=== PATIENT | male | born 1985 | race Caucasian/White ===

== ENCOUNTER 2019-07-07 20:03 | Emergency (ER) | payer OTHER, SELFPAY ==
[2019-07-07] VITALS (26 sets, daily range): BP systolic 109–154; BP diastolic 69–95; PULSE 80–118; RESP 8–23; TEMP 36.6–36.9; O2SAT 94–100
--- NOTE | 2019-07-07 20:19 | W.ED.GENAD ---
Discharge Plan Disposition Patient Disposition: HOME Condition: Fair Discharge Details Chief Complaint: Dizzy/Sync Clinical Impression: Heart palpitations, Dehydration, Creatinine elevation Primary Care Provider: Justine,Local ED Provider: Kyara Allred Home Meds and New Rx's Prescriptions: Continued olopatadine [Patanol] 5 ML drops 1 drp OD BID Qty: 1 RF: 0 Discharge Instructions Instructions: Palpitations (ED), Dehydration (ED) Additional Instructions: Please encourage water intake. Please contact primary care tomorrow to discuss recommended Holter monitor. Please continue to move forward with other testing as was previously advised by primary care. Order has been placed for outpatient Holter to evaluate fly tomorrow. Your creatinine was elevated here, you did appear dehydrated which may have contributed to your symptoms. Please encourage water intake. You will need to have your creatinine reassessed within the next 48 hours. If you develop recurrence of your symptoms, chest pain or shortness of breath, no current palpitations or other new/worsening symptoms please seek care urgently once again. Stand Alone Forms: Work Release Discharge Data Discharge Date/Time-TO BE ENTERED AT DEPARTURE: 07/07/19 23:50 Medical Decision Making Patient is a pleasant 34-year-old male presenting today with chief complaint of palpitations. He has a history of hemochromatosis for which she reports he undergoes therapeutic phlebotomy every 3 months. He reports he was seen at the [place] 2 weeks ago with similar symptoms that he is exhibiting today at which time he was advised to hold off on his treatment which would be scheduled for now. He reports that 2 weeks ago as well as today, he had a sudden onset of palpitations. States that he was sitting in a chair watching TV when this began. He states that he stood and had an episode of lightheadedness. States that the symptoms have waxed and waned but have been fairly consistent in the car while coming here. Patient did need assistance out of the car. Differentials include ACS he denies any shortness of breath. No chest pain. [place] that his heart rate was very rapid and he felt lightheaded with concern for syncopal episode. States that prior to 2 weeks ago he had never had symptoms like this. Denies any cough. No fevers. No nausea vomiting. No recent travel. Denies any leg pain or swelling. He denies any increased stress. He does report that his hands are tingling. Patient is a nurse and works with dialysis locally. EKG was reviewed by Dr. Carmona. Patient is in sinus tachycardia with a rate of 101. Patient is questioning potential mild upslope of the QRS raising the possibility WPW although QRS is normal duration as is the [place] which makes this less likely. On exam, patient is tachycardic with heart rate of 101. He slightly hypertensive at 154/95. He appears very anxious. Lungs are clear, normal cardiac exam with no murmurs, rubs or gallops noted. No lower extremity edema, no posterior calf pain. Abdomen is soft and nontender. Unclear at this time if this is a cardiac source of his symptoms versus anxiety as he does appear very anxious at this point. Patient admits to intermittent severe episodes of presyncope, palpitations and tachycardia. Unclear how fast his heart rate was. Patient was feeling this symptom when I went to assist the patient out of the car. However, I did palpate his radial pulse and found to be around 100 even when in the car. This patient did have worse symptoms while at home, he could have been a night more pronounced tachyarrhythmia. He is currently in a sinus rhythm. No history of arrhythmia. Patient not had any shortness of breath, pleuritic discomfort. He is not hypoxic. I do not have any evidence to support diagnosis of pulmonary embolism at this time. Patient does have family history of ACS but again, find this unlikely given that this was a sudden onset while sedentary the patient is otherwise active without any symptoms. Again, this is most concerning for an arrhythmia versus anxiety related issues. Chest x-ray is reviewed by radiologist: FINDINGS: Lungs: Low lung volumes. Bibasilar atelectasis. No focal consolidation. Pleural space: Unremarkable. No pleural effusion. No pneumothorax. Heart/Mediastinum: Unremarkable. No cardiomegaly. Bones/joints: Unremarkable for patient's age. IMPRESSION: No acute cardiopulmonary findings. Labs reviewed, no leukocytosis. Normal coagulation studies. Potassium slightly low at 3.3. Patient does have a slight gap of 12.3 with an elevated creatinine 1.45. I do not have any previous for evaluation I am questioning patient may be dehydrated. He is receiving a liter of fluid at this time. Total bili is slightly elevated 1.4. Initial troponin is less than 0.05. TSH within normal limits. Plan to obtain repeat troponin and continue to monitor patient. He is feeling improved at this point. Repeat troponin remains within normal limits. Repeat EKG was reviewed by Dr. Caba. Patient's normal sinus rhythm with a rate of 77. No ischemic changes are noted. He advises no evidence of delta wave. Patient is received 2 L of fluid thus far. He is resting comfortably and reports that he is completely asymptomatic and is feeling well. Ready for discharge at this time. I am concerned the patient may have had an arrhythmia based on his symptoms and I would like for him to be on a Holter monitor. He will contact his primary care to ensure coverage as [facility] but I plan to place an order for an outpatient Holter monitor. His primary care is already ordered outpatient cardiac testing otherwise after his initial event to include echo and likely stress test. I have also advised that he needs to have his BMP rechecked in a few days to evaluate his kidney function after being hydrated. I did encourage water intake. He was given strict return precautions. All his questions and concerns were addressed and he is in agreement this plan. HPI General Mode of arrival: wheelchair. Date/Time Provider Initiated Documentation: 07/07/19 20:13. Limitations to Documentation: no limitations. Information obtained by: patient, family and RN notes reviewed. History of Present Illness 34 year old M presents to the emergency department with the chief complaint of palpitations, lightheadedness, presyncope, described as severe and similar to prior episodes, Patient started experiencing this minute(s) and it has been constant. No relieving factors improve symptom(s), No exacerbating factors reported . Patient notes denies chest pain, cough, diaphoresis, fever/chills, headaches, nausea/vomiting, rash, shortness of breath and syncope (presyncopal episodes, no LOC). Patient did receive the following treatments prior to arrival, none Related Data Home Medications Medication Instructions Recorded Confirmed olopatadine [Patanol] 1 drp OD BID #1 btl 06/22/17 Previous Rx's Medication Instructions Recorded olopatadine [Patanol] 1 drp OD BID #1 btl 06/22/17 Allergies Allergy/AdvReac Type Severity Reaction Status Date / Time No Known Allergies Allergy Unverified 06/22/17 06:44 General Stated Complaint: Dizzy/Sync SIL: 2 Review of Systems Constitutional Constitutional: Reports as per HPI, Denies chills, Denies fever(s), Denies headache(s), Denies lethargy and Denies poor appetite Eyes Eyes: Denies change in vision ENT Ears, Nose, Mouth, and Throat: Denies dizziness and Denies headache(s) Cardiovascular Cardiovascular: Reports as per HPI, Denies dyspnea and Denies dyspnea on exertion Respiratory Respiratory: Reports as per HPI, Denies chest congestion, Denies cough, Denies pain on inspiration, Denies pain with cough, Denies dyspnea, Denies dyspnea on exertion and Denies wheezing Gastrointestinal Gastrointestinal: Reports as per HPI, Denies abdominal pain, Denies diarrhea, Denies nausea and Denies vomiting Genitourinary Genitourinary: Denies system reviewed and no additional complaints, except as documented (denies change in urinary habits) Musculoskeletal Musculoskeletal: Reports as per HPI and Denies back pain Integumentary/Breasts Skin/Breast: Reports as per HPI and Denies rash Neurologic Neurologic: Reports as per HPI, Denies dizziness and Denies headache(s) Allergic/Immunologic Allergic/Immunologic: Denies wheezing PFSH Social History Do you feel safe in your relationship?: Yes Exam Const General: cooperative, healthy appearing, no acute distress, well developed and anxious (patient appears very anxious) Nutritional Appearance: average body habitus and well nourished Orientation: alert, awake and oriented x3 HENMT Head: normal to inspection Ears: hearing grossly normal bilaterally Mouth: moist mucous membranes Chest Chest: normal inspection of the chest, normal palpation of entire chest wall and no crepitus Resp Effort & Inspection: normal respiratory effort, able to speak in complete sentences and no respiratory distress Auscultation: clear to auscultation bilaterally, no rales, no rhonchi and no wheezes Cardio Jugular venous pressure: no JVD Palpation: normal PMI Rate: tachycardic (101 at the time of evaluation) Rhythm: regular rhythm Heart Sounds: S1 normal and S2 normal GI Inspection: normal to inspection, no edema and non-distended Palpation: soft, no hepatosplenomegaly, not firm, no guarding, not rigid and nontender Auscultation: normal bowel sounds Back/Spine/Pelvis Back: no CVA tenderness Thoracic/Lumbar Spine: thoracic and lumbar spine normal to inspection Skin General skin exam: no rashes or lesions noted Trauma: no lacerations or abrasions Neuro General: patient alert, patient awake and patient oriented x3 Cognition: normal cognition Speech: speech normal Gait: normal gait Extrem General: normal to inspection, capillary refill normal, no pedal edema, no calf tenderness and normal gait Psych Appearance: grossly normal and well kempt Mental Status: mental status grossly normal Speech and Movement: speech and movement normal Course Vital Signs Vital signs: Vital Signs Pulse 101 H 07/07/19 20:08 Respiratory Rate 16 07/07/19 20:08 Blood Pressure 154/95 H 07/07/19 20:08 Pulse Oximetry 100 07/07/19 20:08 Pulse 101 H 07/07/19 20:08 Respiratory Rate 16 07/07/19 20:08 Blood Pressure 154/95 H 07/07/19 20:08 Blood Pressure Position Supine 07/07/19 20:08 Pulse Oximetry 100 07/07/19 20:08 Oxygen Delivery Method Room Air 07/07/19 20:08 Oxygen Flow Rate 0 07/07/19 20:08 Pain Level 0 07/07/19 20:08
[2019-07-07 20:23] LABS: Abs Immature Grans 0.03 k/cumm (0.0-0.09); Absolute Basophil Count 0.03 k/cumm (0.0-0.2); Absolute Eosinophil Count 0.12 k/cumm (0.0-0.7); Absolute Lymphocyte Count 2.99 k/cumm (1.2-3.4); Absolute Monocyte Count 0.83 k/cumm (0.11-0.7); Absolute Neutrophil Count 6.15 k/cumm (1.2-6.7); Basophils % 0.3; Eosinophils % 1.2; HCT 45.1 % (40.0-50.0); HGB 16.6 g/dL (13.5-17.5); Immature Grans % 0.3 %; Lymphocytes % 29.5; Mean Corp. HGB Concentration 36.8 g/dL (32.0-36.0); Mean Corpuscular Hemoglobin 32.9 pg (27.0-33.0); Mean Corpuscular Volume 89.5 fL (80-95); Mean Platelet Volume 10.9 fL (8.0-11.0); Monocytes % 8.2; Neutrophils % 60.5; Platelet Count 296 x1000/uL (130-400); RBC 5.04 m/cumm (4.50-6.00); RBC Distribution Width 13.5 % (11.8-14.1); White Blood Cell Count 10.15 k/cumm (4.4-10.8)
--- NOTE | 2019-07-07 20:30 | DI.RAD_ITS ---
EXAM: XR CHEST 2V PA LATERAL CLINICAL HISTORY: palpitations TECHNIQUE: 2D digital imaging was performed. COMPARISON: No exams were available for comparison FINDINGS: MEDIASTINUM: Normal. HEART: Normal. PULMONARY VASCULATURE: Normal. LUNGS: No focal consolidating infiltrate. PLEURAL SPACE: No pleural effusion or pneumothorax. BONE:Normal. OTHER FINDINGS:Low lung volumes. IMPRESSION: No acute pulmonary findings. DATA REPOSITORY: RADIATION DOSE DELIVERED:
[2019-07-07] MEDS: Normal Saline 1,000 ML 150 ML IV (20:31)
--- NOTE | 2019-07-07 20:37 | DI.VRAD_ITS ---
PROCEDURE INFORMATION: Exam: XR Chest, 2 Views Exam date and time: 07/07/2019 8:29 PM Age: 34 years old Clinical indication: Other: Palpitations TECHNIQUE: Imaging protocol: XR of the chest Views: 2 views. COMPARISON: No relevant prior studies available. FINDINGS: Lungs: Low lung volumes. Bibasilar atelectasis. No focal consolidation. Pleural space: Unremarkable. No pleural effusion. No pneumothorax. Heart/Mediastinum: Unremarkable. No cardiomegaly. Bones/joints: Unremarkable for patient's age. IMPRESSION: No acute cardiopulmonary findings. Dictated and Authenticated by: Cassy Hammer MD. Ordering:ALEXIS Sparrow MD
[2019-07-07 20:39] LABS: PTT Activated 23.5 sec (21.0-31.4); Prothrombin Time 10.4 sec (9.3-11.0)
[2019-07-07 20:49] LABS: ALT 51 U/L (16-63); AST 26 U/L (15-37); Albumin 4.7 g/dL (3.4-5.0); Alkaline Phosphatase 63 U/L (46-116); Anion Gap 12.3 mmol/L (3-11); BUN 15 mg/dL (7-18); Bilirubin, Total 1.4 mg/dL (0.2-1.0); CO2 26.7 mmol/L (21.0-32.0); CREATININE 1.45 mg/dL (0.70-1.30); Calcium 9.1 mg/dL (8.5-10.1); Chloride 103 mmol/L (98-107); Estimated GFR 56.05 (mL/min/1.73m2); Glucose 126 mg/dL (74-106); Magnesium 1.7 mg/dL (1.8-2.4); Potassium 3.3 mmol/L (3.5-5.1); Sodium 142 mmol/L (136-145); TSH 3.13 uIU/mL (0.36-3.74); Total Protein 7.7 g/dL (6.4-8.2)
[2019-07-07 20:50] LABS: Troponin I < 0.05 ng/Ml (<0.06)
[2019-07-07] MEDS: Normal Saline 1,000 ML 1000 ML IV (22:02)
[2019-07-07 23:28] LABS: Troponin I < 0.05 ng/Ml (<0.06)
== END 2019-07-07 23:50 | disposition home or self-care (01) ==
PROVIDERS: Emergency Provider Physician Assistant
DX: R00.2 Palpitations (principal); E86.0 Dehydration; R94.4 Abnormal results of kidney function studies; E83.119 Hemochromatosis, unspecified; E87.6 Hypokalemia
CPT/HCPCS: 36415; 80053; 93005; 96360; 96361; 99285; 71046; 83735; 84443; 84484; 85025; 85610; 85730; 93010

== ENCOUNTER 2019-07-08 20:10 | Emergency (ER) | payer OTHER, SELFPAY ==
[2019-07-08] VITALS (12 sets, daily range): BP systolic 131–139; BP diastolic 81–87; PULSE 87–103; RESP 8–27; TEMP 37.4; O2SAT 96–99
--- NOTE | 2019-07-08 20:20 | ED.GENADUL_ITS ---
Discharge Plan Disposition Patient Disposition: HOME Condition: Fair Discharge Details Chief Complaint: Palpitatns Clinical Impression: Heart palpitations Primary Care Provider: Fausto Freeman ED Provider: Kyara Allred Discharge Instructions Instructions: Palpitations (ED) Additional Instructions: Continue to encourage water intake. Continue to rest as you have been at home. Please call primary care tomorrow morning regarding Holter monitor. Please call me if you are having difficulty getting appointment. If you have return of symptoms, chest pain, shortness of breath, syncopal episode or other new/worsening symptoms please seek care urgently once again. Discharge Data Discharge Date/Time-TO BE ENTERED AT DEPARTURE: 07/08/19 21:25 Medical Decision Making Patient is a pleasant 34-year-old male, was seen by myself yesterday, presenting today with chief complaint of persistent palpitations. He was seen by myself yesterday at the time of his discharge, his symptoms had resolved. He states that throughout the entire day today, he has had fluttering in his chest but then developed true palpitations while at [place] this evening. He reports sitting at home, watching TV, when he began having these symptoms. Same type of onset was described last night. Reports that he had been intermittently checking his pulse with a home oximeter machine throughout the day. Reports that throughout the course the day when he was experiencing a fluttering his heart rate was up in the 80s or low 90s. However, when the palpitations began he was able to watch his heart rate steadily rise to the 190s. Reports that symptoms did improve slightly on his way here. He denies any chest pain. No shortness of breath. He did feel lightheaded particularly when he stood to a standing po sition. On exam, patient is resting comfortably. He has normal cardiac exam, lungs are clear. He does appear very anxious. Initial vital signs significant for heart rate of 92. Otherwise within normal limits. EKG was reviewed by Dr. Caba. Patient's normal sinus rhythm with a rate of 93. No acute ischemic changes noted, normal VT, QT. Labs reviewed. No leukocytosis. D-dimer is within normal limits. Creatinine is improved from yesterday down to 1.11 from 1.45. Troponin remains less than 0.05. As he had chest x-ray yesterday as well as time troponins, do not feel that a repeat is necessary at this point nor is further imaging. Patient has had symptoms frequently throughout the course the day. It still remains unclear at this time as this is associated with arrhythmia versus anxiety. Patient does seem to have symptoms correlating with both of these etiologies. However, the patient does report that his heart rate was near 200 prior to arrival, and primarily concerned for arrhythmia and feel that Holter is appropriate. He was having difficulty reaching his primary care and I have asked her care technician to help assist him tomorrow with this. [place] has advised that there would like for him to have his Holter monitor through their [place] office. I have asked her care technician to ensure that this is completed tomorrow either through the [place] or through our facility. He was given strict return precautions. We did discuss plus/minus of admission and he would prefer to be discharged at this time. He does live locally and is able to return quickly if he develops any worsening symptoms. All his questions and concerns were addressed and he is agreement with this plan. HPI General Mode of arrival: ambulatory . Date/Time Provider Initiated Documentation: 07/08/19 20:19 . Limitations to Documentation: no limitations . Information obtained by: patient, family () and RN notes reviewed . History of Present Illness 34 year old M presents to the emergency department with the chief complaint of palpitations, described as moderate and similar to prior episodes, Quality is described as other (denies any pain, had fluttering in his chest throughout the day, palpitations prior to arrival), and is localized to the chest. Patient reports no radiation. Patient started experiencing this day(s) and it has been constant. No relieving factors improve symptom(s), No exacerbating factors reported . Patient notes no other symptoms.. Patient did receive the following treatments prior to arrival, none Related Data Allergies Allergy/AdvReac Type Severity Reaction Status Date / Time No Known Allergies Allergy Unverified 07/08/19 20:16 General Stated Complaint: Palpitatns SIL: 2 Review of Systems Constitutional Constitutional: Reports as per HPI, Denies chills, Denies fever(s), Denies headache(s), Denies lethargy and Denies poor appetite Eyes Eyes: Denies change in vision ENT Ears, Nose, Mouth, and Throat: Denies dizziness and Denies headache(s) Cardiovascular Cardiovascular: Reports as per HPI, Denies dyspnea and Denies dyspnea on exertion Respiratory Respiratory: Reports as per HPI, Denies chest congestion, Denies cough, Denies pain on inspiration, Denies pain with cough, Denies dyspnea, Denies dyspnea on exertion and Denies wheezing Gastrointestinal Gastrointestinal: Reports as per HPI, Denies abdominal pain, Denies diarrhea, Denies nausea and Denies vomiting Genitourinary Genitourinary: Denies system reviewed and no additional complaints, except as documented (denies change in urinary habits) Musculoskeletal Musculoskeletal: Reports as per HPI and Denies back pain Integumentary/Breasts Skin/Breast: Reports as per HPI and Denies rash Neurologic Neurologic: Reports as per HPI, Denies dizziness and Denies headache(s) Allergic/Immunologic Allergic/Immunologic: Denies wheezing PFSH Social History Smoking/Tobacco Use Status: Former Tobacco Use Substance use type: does not use Do you feel safe at home: Yes Do you feel safe in your relationship?: Yes Exam Const General: cooperative, healthy appearing, comfortable, no acute distress, well developed and anxious Nutritional Appearance: average body habitus and well nourished Orientation: alert, awake and oriented x3 HENMT Head: normal to inspection Ears: hearing grossly normal bilaterally Mouth: moist mucous membranes Chest Chest: normal inspection of the chest, normal palpation of entire chest wall and no crepitus Resp Effort & Inspection: normal respiratory effort, able to speak in complete sentences and no respiratory distress Auscultation: clear to auscultation bilaterally, no rales, no rhonchi and no wheezes Cardio Rate: regular rate Rhythm: regular rhythm Heart Sounds: S1 normal and S2 normal GI Inspection: normal to inspection, no edema and non-distended Palpation: soft, no hepatosplenomegaly, not firm, no guarding, not rigid and nontender Auscultation: normal bowel sounds Back/Spine/Pelvis Back: no CVA tenderness Thoracic/Lumbar Spine: thoracic and lumbar spine normal to inspection Skin General skin exam: no rashes or lesions noted Trauma: no lacerations or abrasions Neuro General: patient alert, patient awake and patient oriented x3 Cognition: normal cognition Speech: speech normal Gait: normal gait Extrem General: normal to inspection, capillary refill normal, no pedal edema, no calf tenderness and normal gait Psych Appearance: grossly normal and well kempt Mental Status: mental status grossly normal Speech and Movement: speech and movement normal Course Vital Signs Vital signs: Vital Signs Temperature 37.4 C 07/08/19 20:13 Pulse 92 H 07/08/19 20:13 Respiratory Rate 12 07/08/19 20:13 Temperature 37.4 C 07/08/19 20:13 Temperature Source Temporal Artery Scan 07/08/19 20:13 Pulse 92 H 07/08/19 20:13 Respiratory Rate 12 07/08/19 20:13 Respiratory Effort 07/08/19 20:17 Oxygen Delivery Method Room Air 07/08/19 20:13 Oxygen Flow Rate 0 07/08/19 20:13 Pain Level 0 07/08/19 20:13
[2019-07-08 20:35] LABS: Abs Immature Grans 0.05 k/cumm (0.0-0.09); Absolute Basophil Count 0.04 k/cumm (0.0-0.2); Absolute Eosinophil Count 0.12 k/cumm (0.0-0.7); Absolute Lymphocyte Count 2.17 k/cumm (1.2-3.4); Absolute Monocyte Count 0.81 k/cumm (0.11-0.7); Absolute Neutrophil Count 7.22 k/cumm (1.2-6.7); Basophils % 0.4; Eosinophils % 1.2; HCT 43.4 % (40.0-50.0); HGB 15.9 g/dL (13.5-17.5); Immature Grans % 0.5 %; Lymphocytes % 20.8; Mean Corp. HGB Concentration 36.6 g/dL (32.0-36.0); Mean Corpuscular Hemoglobin 32.9 pg (27.0-33.0); Mean Corpuscular Volume 89.9 fL (80-95); Mean Platelet Volume 10.7 fL (8.0-11.0); Monocytes % 7.8; Neutrophils % 69.3; Platelet Count 287 x1000/uL (130-400); RBC 4.83 m/cumm (4.50-6.00); RBC Distribution Width 13.4 % (11.8-14.1); White Blood Cell Count 10.41 k/cumm (4.4-10.8)
[2019-07-08] MEDS: Normal Saline 1,000 ML 150 ML IV (20:39)
[2019-07-08 20:47] LABS: ALT 44 U/L (16-63); AST 23 U/L (15-37); Albumin 4.7 g/dL (3.4-5.0); Alkaline Phosphatase 64 U/L (46-116); BUN 12 mg/dL (7-18); Bilirubin, Total 1.2 mg/dL (0.2-1.0); CREATININE 1.11 mg/dL (0.70-1.30); Chloride 104 mmol/L (98-107); Glucose 111 mg/dL (74-106); Potassium 3.6 mmol/L (3.5-5.1); Sodium 141 mmol/L (136-145); Total Protein 7.6 g/dL (6.4-8.2)
[2019-07-08 20:49] LABS: Troponin I < 0.05 ng/Ml (<0.06)
[2019-07-08 21:06] LABS: D-Dimer 112 ng/mlFEU (<500)
--- NOTE | 2019-07-08 21:26 | NUR.NOTE ---
Nursing Note: REFERAL TO CARE MANAGEMANT 07/08/19
== END 2019-07-08 21:25 | disposition home or self-care (01) ==
LOC: ER 21:32
PROVIDERS: Emergency Provider Physician Assistant; PCP Internal Medicine
DX: R00.2 Palpitations (principal)
CPT/HCPCS: 36415; 80053; 93005; 96360; 99284; 83735; 84484; 85025; 85379; 93010

== ENCOUNTER 2019-07-28 06:02 | Emergency (ER) | payer OTHER, SELFPAY ==
[2019-07-28] VITALS (10 sets, daily range): BP systolic 123–137; BP diastolic 74–79; PULSE 79–91; RESP 10–21; TEMP 37; O2SAT 93–98
--- NOTE | 2019-07-28 05:49 | W.ED.GENAD ---
Discharge Plan Disposition Patient Disposition: HOME Condition: Good Discharge Details Chief Complaint: Palpitatns Clinical Impression: Heart palpitations Primary Care Provider: Fausto Freeman ED Provider: Shahid Caba Home Meds and New Rx's Prescriptions: Continued melatonin 1 mg Tablet 1.5 mg PO QHS PRNRF: 0 Discharge Instructions Additional Instructions: EKG and CT scan are normal. Please contact primary care for Holter results as well as follow-up. Return to emergency department for prolonged chest pain, prolonged palpitations, shortness of breath, syncope. Referrals: Fausto Freeman [Primary Care Provider] - Medical Decision Making Patient presenting to ED with complaints of palpitations. He is fixated on an abdominal problem. He is clearly anxious. He has normal vital signs here. Previous laboratory work-up last month unremarkable. I do not feel I need to repeat these labs. He had an echo which he reports was normal. He has turned in a Holter monitor after 2 weeks but does not have the results. When asked specifically what he is concerned about he reports that he is concerned he has a AAA. 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 His abdomen is benign. Despite our discussion and his understanding he still remained extremely anxious. Continues to complain of abdominal discomfort and concerned that this is what is causing his elevated heart rates. After continued repeated discussion agreed to obtain CT scan of the abdomen pelvis for patient peace of mind, rule out of significant abdominal pathology. We did discuss exposure to radiation and subsequent development of cancer, though he reports never having CT in the past. CT scan of abdomen pelvis is unremarkable other than fatty liver. Patient be discharged home to follow-up with primary care as well as to get the results of his Holter monitor. Return to ED for prolonged chest pain, shortness of breath, prolonged palpitations, syncope. Medical Records Medical records reviewed: Yes I reviewed the patient's medical records. ECG Data Attestation: I personally reviewed and interpreted this ECG (s) as follows: Prior ECG tracings: not available for review Interpretation: Normal sinus rhythm at a rate of 88. Normal intervals and axis. Normal ST segments. Normal EKG. HPI General Mode of arrival: EMS. Date/Time Provider Initiated Documentation: 07/28/19 07:04. Limitations to Documentation: no limitations. Information obtained by: patient, EMS and old records reviewed. HPI Narrative: Patient presents to ED by ambulance with complaint of palpitations and abdominal problems. Patient arrives quite anxious. He was seen here in June for palpitations and lightheadedness. Work-up at that time was negative including laboratory studies, EKGs, chest x-ray. He had negative troponins and d-dimer. He had normal TSH. He has had an echo which she reports was normal. Return and Holter monitor at the end of last week. He does not have the results of this. He reports that last night after dinner he had some abdominal discomfort and noticed an increased pulse rate. Upon thinking about his past presentations he feels that he is always had abdominal complaints leading up to the palpitations but is never really discussed these with anybody. This morning while driving to work he reports recurrent abdominal discomfort and nausea. He then felt his heart rate goes up. He reported to EMS that he had a heart rate of 200 but admits he did not have his pulse ox with him nor did he actually take a pulse. He denies having any fever, cough, shortness of breath. He denies any chest pain. He has no risk factors for DVT/PE. He arrives here anxious but with essentially normal vital signs. Related Data Home Medications Medication Instructions Recorded Confirmed melatonin 1.5 mg PO QHS PRN 07/28/19 07/28/19 Allergies Allergy/AdvReac Type Severity Reaction Status Date / Time No Known Allergies Allergy Unverified 07/28/19 05:59 General SIL: 2 Review of Systems Narrative: As documented in HPI otherwise negative as below. Const: no fever, chills, weakness Resp: no cough, SOB, pleuritic pain CV: no CP, diaphoresis, edema, syncope GI: abdominal pain; no nausea, vomiting, diarrhea Neuro: no headache, numbness, focal weakness, confusion [facility] Medical History Hemochromatosis (Chronic) Surgical History S/P appendectomy (Inactive) Social History Smoking/Tobacco Use Status: Former Tobacco Use Substance use type: does not use Do you feel safe at home: Yes Do you feel safe in your relationship?: Yes Exam Narrative Exam Narrative: Vitals: Afebrile with normal vitals and normal room air pulse oximetry. Const: WDWN female in NAD. HEENT: NC/AT. Normal facial exam. Eyes: Normal conjunctiva and sclera. Neck: Supple. Trachea midline. Lungs: Normal respiratory effort. Lungs are clear. Cor: RRR without murmur/gallop. Good radial pulses. GI: Soft. NT/ND. No guarding or rebound. Neuro: A+O x 3. Normal speech, mentation. Cranial nerves II - XII grossly intact. No gross motor or sensory deficit. Ext: No C/C/E. No calf tenderness. Skin: Warm and dry without rash.
--- NOTE | 2019-07-28 06:08 | NUR.NOTE ---
Nursing Note: pt had multiple c/o: heart rate of over 20, weird feeling in my stomach, anxiety. States he thinks his stomach problems are being overlooked because of my tachycardia. No c/o stomach pain. Denies SOB, chest pain or nausea.
--- NOTE | 2019-07-28 06:15 | DI.CT_ITS ---
EXAM: CT ABDOMEN PELVIS W CLINICAL HISTORY: abdominal pain TECHNIQUE: Imaging Protocol: Axial computed tomography images with coronal and sagittal reformatted images were created and reviewed CONTRAST MATERIAL: Intravenous: Omnipaque 350 Contrast volume:100 mL Oral: No COMPARISON: No exams were available for comparison FINDINGS: ABDOMEN: Lung Bases: Normal where visualized. Liver: Diffuse fatty infiltration. No measurable mass. Portal, Superior Mesenteric, and Splenic Veins: Unremarkable. Gallbladder and Biliary Tract: No radiodense calculus or dilation. Pancreas: Normal density, no abnormal calcifications or inflammatory process. Spleen: Mild splenomegaly. 15 cm. Adrenals: No masses seen. Kidneys: Normal size, contour and axis. No radiodense stones or obstructive uropathy. No masses seen. Abdominal Aorta: Abdominal portion non-dilated. Bowel: No obstruction or bowel wall thickening. The patient appears to be status post appendectomy. Peritoneal Cavity: No ascites, collection or mesenteric inflammatory response. Lymph Nodes: Within normal limits. Bones: No acute abnormality. Soft Tissues: Unremarkable. PELVIS: Bladder: Symmetric distention, no gross wall thickening. Reproductive Organs: Unremarkable as visualized. Lymph Nodes: Within normal limits. Bones: No acute abnormality. IMPRESSION: 1. No acute abdominal or pelvic process. 2. Mild splenomegaly. RADIATION DOSE DELIVERED: DATA REPOSITORY: All CT scans at this facility are submitted to the National Radiology Data Registry (NRDR) Dose Index Registry (DIR) with the [employer] (ACR). RADIATION OPTIMIZATION: All CT scans at this facility use at least one of these dose optimization te chniques: automated exposure control; mA and/or kV adjustment per patient size (includes targeted exa ms where dose is matched to clinical indication); or iterative reconstruction.
[2019-07-28] MEDS: Omnipaque 350 MG/ML 100 ML BTL IJ (06:47)
[2019-07-28] MEDS: Normal Saline - Diluent 50 ML VIAL IV (06:48)
--- NOTE | 2019-07-28 06:59 | DI.VRAD_ITS ---
PROCEDURE INFORMATION: Exam: CT Abdomen And Pelvis With Contrast Exam date and time: 07/28/2019 6:42 AM Age: 34 years old Clinical indication: Abdominal pain; Generalized; Prior surgery; Surgery date: 6+ months; Surgery type: Appendectomy TECHNIQUE: Imaging protocol: Computed tomography of the abdomen and pelvis with intravenous contrast. Radiation optimization: All CT scans at this facility use at least one of these dose optimization techniques: automated exposure control; mA and/or kV adjustment per patient size (includes targeted exams where dose is matched to clinical indication); or iterative reconstruction. Contrast material: OMNIPAQUE 350; Contrast volume: 100 ml; Contrast route: IV; COMPARISON: No relevant prior studies available. FINDINGS: Liver: Fatty infiltration. No mass. Gallbladder and bile ducts: No calcified stones. No ductal dilation. Pancreas: Normal. No ductal dilation. Spleen: Borderline splenomegaly. Adrenals: Normal. No mass. Kidneys and ureters: Normal. No hydronephrosis. Stomach and bowel: Unremarkable. No obstruction. No mucosal thickening. Appendix: Prior appendectomy Intraperitoneal space: Unremarkable. No free air. No significant fluid collection. Vasculature: Unremarkable. No abdominal aortic aneurysm. Lymph nodes: Unremarkable. No enlarged lymph nodes. Bladder: Unremarkable as visualized. Reproductive: Unremarkable as visualized. Bones/joints: Minimal retrolisthesis of L5 on S1 is presumed degenerative No acute fracture. Soft tissues: Unremarkable. IMPRESSION: No acute findings. Nonspecific nonobstructed bowel gas pattern Borderline splenomegaly Status post appendectomy Dictated and Authenticated by: Roberto Howe MD. Ordering:CASSIE Key MD
--- NOTE | 2019-07-28 09:08 | NUR.NOTE ---
Nursing Note: work note faxed at pt's request to dialysis. Dr. Rodrigez has written this note after review of charting.
== END 2019-07-28 07:13 | disposition home or self-care (01) ==
LOC: ER 07:15
PROVIDERS: Emergency Provider Emergency Medicine; PCP Internal Medicine
DX: R00.2 Palpitations (principal)
CPT/HCPCS: 93005; 99285; 74177; 93010; 99284; J3490

== ENCOUNTER 2020-05-27 00:31 | Outpatient (CLI) | payer BC, SELFPAY ==
--- NOTE | 2020-05-27 | DI.US_ITS ---
EXAM: US SCROTUM CLINICAL HISTORY: RT TESTICULAR MASS, N50.9. TECHNIQUE: Scrotal ultrasound performed using grayscale, color-flow and spectral Doppler analysis. COMPARISON: No exams were available for comparison FINDINGS: Right testicle: 4.9 x 2 x 3.4 cm Echogenicity: Normal. Contour: Smooth. Mass: None seen. Microlithiasis: None. Hydrocele: None. Variocele: None. Hernia: No peristalsing bowel loop identified. Epididymis: Normal. Left testicle: 4.5 x 2.4 x 3.4 cm Echogenicity: Normal. Contour: Smooth. Mass: None seen. Microlithiasis: None. Hydrocele: None. Variocele: None. Hernia: No peristalsing bowel loop identified. Epididymis: Normal. DOPPLER: Color: Symmetric and uniform, no hyperemia. Duplex: Bilateral testicular arterial waveforms visualized. Other: There is a 0.5 x 0.1 x 0.5 cm ovoid hypoechoic lesion which is in the skin layer of the scrotu m. It appears separate from the testicle. No definite communication with the skin surface is seen. There is a question of minimal vascularity is seen sonographically. IMPRESSION: 1. Normal appearing bilateral testicles. No evidence of a testicular mass or torsion. 2. 0.5 x 0.1 x 0.5 cm ovoid hypoechoic lesion within the skin layer of the scrotal sac. The finding is nonspecific but may represent a benign skin lesion such as a sebaceous cyst. DATA REPOSITORY:
== END 2020-05-27 00:32 | disposition home or self-care (01) ==
LOC: DI 00:31
PROVIDERS: PCP Internal Medicine; Visit Provider Nurse Practitioner Family
DX: N50.89 Other specified disorders of the male genital organs (principal)
CPT/HCPCS: 76870

== ENCOUNTER 2021-04-19 01:13 | Outpatient (CLI) | payer OTHER, SELFPAY ==
--- NOTE | 2021-04-19 10:30 | DI.MRI_ITS ---
Exam(s) MR BRAIN WO EXAM: MR BRAIN WO CLINICAL HISTORY: DAILY HEADACHES TECHNIQUE: Multiplanar multisequence MRI of the brain was performed. COMPARISON: No exams were available for comparison FINDINGS: The ventricular system is normal in appearance. There is a tiny focus of abnormal signal seen on T2 weighted and FLAIR imaging in right frontal white matter. No other convincing signal abnormality identified in the brain. The findings are nonspecif ic. Additional evaluation with contrast enhanced MRI may be considered if clinically indicated. Oth erlolita, I would suggest that follow-up brain MRI be performed in 12 months to assess stability. The orbital and temporal bone structures appear intact as does the pituitary. Diffusion weighted imaging shows no evidence of infarction. Susceptibility weighted imaging shows no evidence of intracranial hemorrhage. There is normal flow void in the [place] vasculature. IMPRESSION: Solitary high signal focus in right frontal white matter. Findings are nonspecific. Follow-up brain MRI recommended in 12 months. If there is a high clinical suspicion of neoplastic or inflammatory p rocess, additional evaluation with contrast enhanced MRI may be considered. DATA REPOSITORY:
== END 2021-04-19 01:33 ==
PROVIDERS: PCP Internal Medicine; Visit Provider Internal Medicine
DX: R51.9 Headache, unspecified (principal); R90.82 White matter disease, unspecified
CPT/HCPCS: 70551